=== PATIENT | male | born 1995 | race Caucasian/White ===

== ENCOUNTER 2021-01-10 07:07 | Emergency (ER) | payer OTHER ==
[~2021-01-10] VITALS: Ht 177.8 cm; Wt 95.3 kg
[~2021-01-10 07:07] MED LIST: IBUPROFEN800 MG PO
[2021-01-10 10:04] LABS: HEMOGLOBIN 16.2 gm/dl (14.0-17.5); RED BLOOD COUNT 5.26 M/UL (4.20-5.50); WHITE BLOOD COUNT 5.2 K/UL (4.5-11.0)
[2021-01-10 10:24] LABS: BUN/CREATININE RATIO 11 (0-10)
[2021-01-10] MEDS ORDERED: ZOFRAN ODT 4 MG4 MG SL (10:40)
== END 2021-01-10 12:15 | disposition home or self-care (01) ==
LOC: ER1 07:07
PROVIDERS: Physician Assistant
DX: Z23 Encounter for immunization (principal); U07.1 COVID-19; E66.9 Obesity, unspecified; I10 Essential (primary) hypertension
CPT/HCPCS: 80048; 85025; 99283; M0243